=== PATIENT | female | born 1960 | race Caucasian/White ===

== ENCOUNTER 2018-08-07 05:49 | Inpatient (IN) | payer BC ==
[2018-08-07] VITALS (788 sets, daily range): BP systolic 101–143; BP diastolic 57–78; PULSE 59–73; TEMP 97.6–98.7; O2SAT 90–100
[~2018-08-07] VITALS: Ht 172.7 cm; Wt 109.8 kg
--- NOTE | 2018-08-07 10:15 | NUR ---
Patient transferred to ICU via bed by OR staff. Patient is nasally intubated and being bagged by Wang Duarte. Patient is sedated and does not follow commands. Patient is attached to bedside monitor, vital signs stable at this time. Mac catheter inserted with no complications. Family retrieved from OR waiting room at this time and present at patient's bedside. Call light placed within reach. Side rails up x3. Bed in lowest position. Patient remains in no apparent distress. Family has no concerns at this time.
[2018-08-07 10:53] LABS: COLLECTION METHOD IN
[2018-08-07 11:07] LABS: BUDDING YEAST Present /hpf; MUCOUS Present /lpf; PH 5 (5-8); SQUAMOUS EPITHELIAL None Seen /hpf; URINE APPEARANCE Turbid; URINE BACTERIA Rare /hpf; URINE BILIRUBIN Negative (NEGATIVE); URINE BLOOD Negative (NEGATIVE); URINE COLOR Yellow; URINE GLUCOSE Negative (NEGATIVE); URINE KETONE Negative (NEGATIVE); URINE LEUKOCYTE ESTERASE Negative (NEGATIVE); URINE NITRATE Negative (NEGATIVE); URINE PROTEIN(semi-quant) 2+ (NEGATIVE); URINE RBC 0-2 /hpf
[2018-08-07 11:40] LABS: HEMATOCRIT 35.2 % (37.0-47.0); HEMOGLOBIN 10.1 g/dl (12.5-16.0); MEAN CELL VOLUME 77 fl (80.0-100.0); MEAN CORPUSCULAR HEMOGLOBIN 22 pg (27.0-31.0); MEAN CORPUSCULAR HGB CONC 29 g/dl (33.0-37.0); MEAN PLATELET VOLUME 9.1 fl (7.4-10.4); PLATELET COUNT 299 K/mm3 (130-400); RED BLOOD COUNT 4.56 M/mm3 (4.10-5.30); REDCELL DISTRIBUTION WIDTH-CV 17.9 % (11.5-14.5)
[2018-08-07 11:53] LABS: ALANINE AMINOTRANSFERASE < 6 U/L (9-52); ALBUMIN 3.4 gm/dL (3.5-5.0); ALKALINE PHOSPHATASE 106 U/L (50-136); ANION GAP 7 mmol/L (7-16); AST,SGOT 12 U/L (15-37); BILIRUBIN,TOTAL 0.4 mg/dL (0.0-1.0); BLOOD UREA NITROGEN 12 mg/dL (7-17); CALCIUM 8.5 mg/dL (8.4-10.2); CARBON DIOXIDE 25 mmol/L (22-30); CHLORIDE 112 mmol/L (98-107); CREATININE, serum 0.53 (0.52-1.25); GLUCOSE 137 mg/dL (74-106); MAGNESIUM 2.1 mg/dL (1.6-2.3); PHOSPHOROUS 3.6 mg/dL (2.5-4.5); POTASSIUM 4.1 mmol/L (3.4-5.0); SODIUM 143 mmol/L (137-145); TOTAL PROTEIN 6.8 gm/dL (6.4-8.2)
[2018-08-07 12:37] LABS: ARTERIAL BLD GAS O2 SATURATION 96.8 % (92-100); ARTERIAL BLD GAS TCO2 CT 25.2; ARTERIAL BLOOD GAS BASE EXCESS -2.3 (-2-2); ARTERIAL BLOOD GAS HCO3 23.8 meq/L (22-26); ARTERIAL BLOOD GAS pH 7.33 (7.35-7.45)
[2018-08-07] MEDS ORDERED: MOTRIN 200200 MG/TAB PO (12:48)
--- NOTE | 2018-08-07 13:00 | NUR ---
Family remains at bedside with no questions or concerns. Patient remains sedated and ventilated. Refer to titration documentation for sedation medication.
[2018-08-07 13:46] LABS: ANISOCYTOSIS 2+; BAND 3 % (0-10); LYMPHOCYTE 6 % (20.0-51.0); NEUTROPHILS 89 % (42.0-75.2); OVALOCYTES 1+; PLATELET ESTIMATE NORMAL (NORMAL)
--- NOTE | 2018-08-07 16:15 | NUR ---
Patient is more alert and able to follow commands. Patient is able to write full sentences and expressed that it feels like she needs to clear her throat. Patient is told that she has a tube in her nose that extends down her throat to help her breathe and that it might make her throat feel scratchy and give her that feeling that she needs to clear her throat. Patient's tongue is visibly smaller and she is able to close her lips. Patient is not agitated and writes that she is not in any pain. Patient is repositioned at this time. Call light is placed in patient's hand and bed is lowered to the lowest position.
--- NOTE | 2018-08-07 17:00 | NUR ---
Patient is improving. Patient's tongue is less swollen and the patient is able to close her mouth completely. The patient is also able to write full sentences and communicate effectively with staff and family while on sedation. Patient is in no apparent distress at this time.
[2018-08-07] MEDS ORDERED: TEMOVATE45OI TOP (17:25)
[2018-08-07 17:33] LABS: ARTERIAL BLD GAS O2 SATURATION 85.7 % (92-100); ARTERIAL BLD GAS TCO2 CT 21.4; ARTERIAL BLOOD GAS BASE EXCESS -3.6 (-2-2); ARTERIAL BLOOD GAS HCO3 20.4 meq/L (22-26); ARTERIAL BLOOD GAS PCO2 33.2 mmHg (35-45); ARTERIAL BLOOD GAS PO2 53.1 mmHg (80-100); ARTERIAL BLOOD GAS pH 7.41 (7.35-7.45)
--- NOTE | 2018-08-07 18:38 | NUR ---
ET tube secured, but needs repositioning. RT called to assess. RT in the room at this time. Patient is stable, in no apparent distress.
--- NOTE | 2018-08-07 19:00 | NUR ---
Bedside shift report given to JONAH Woodruff. Family at bedside. Patient communicating with family with pad and pen. Patient is stable, much improved from this morning. Call light placed within reach. Bed lowered to lowest position. Patient and family have no complaints or concerns at this time.
--- NOTE | 2018-08-07 19:47 | NUR ---
Patient assessment completed and charted at this time, please see documentation for details. Patient resting in bed, tolerating ventilator well at this time, family currently at bedside, stating they are planning on leaving now so she can get some rest. Patient tongue remains swollen, reportedly improved from earlier. Patient alert and able to write on board for communication, no needs or questions at this time. Will continue to monitor.
--- NOTE | 2018-08-07 23:38 | NUR ---
Patient assessment completed, please see charting for details. Patient complains of "burping." ET tube sounds in correct place, discussed case with ISSA Knight and RT Tami and they agreed with assessment. Will continue to monitor.
[2018-08-08] VITALS (939 sets, daily range): BP systolic 111–169; BP diastolic 60–98; PULSE 66–93; TEMP 98.1–99; O2SAT 89–100
--- NOTE | 2018-08-08 05:00 | NUR ---
Sedation vacation not conducted at this time. Patient easily arousable, not considered candidate for extubation until 08/09.
[2018-08-08 05:52] LABS: MEAN CELL VOLUME 77 fl (80.0-100.0); MEAN CORPUSCULAR HGB CONC 29 g/dl (33.0-37.0); MEAN PLATELET VOLUME 9.1 fl (7.4-10.4); PLATELET COUNT 355 K/mm3 (130-400); RED BLOOD COUNT 4.31 M/mm3 (4.10-5.30); REDCELL DISTRIBUTION WIDTH-CV 17.9 % (11.5-14.5)
[2018-08-08 06:02] LABS: HEMATOCRIT 33.2 % (37.0-47.0); HEMOGLOBIN 9.6 g/dl (12.5-16.0); MEAN CORPUSCULAR HEMOGLOBIN 22 pg (27.0-31.0)
[2018-08-08 06:04] LABS: ARTERIAL BLD GAS O2 SATURATION 95.3 % (92-100); ARTERIAL BLD GAS TCO2 CT 21.2; ARTERIAL BLOOD GAS BASE EXCESS -3.9 (-2-2); ARTERIAL BLOOD GAS HCO3 20.2 meq/L (22-26); ARTERIAL BLOOD GAS PCO2 33.3 mmHg (35-45); ARTERIAL BLOOD GAS PO2 81.4 mmHg (80-100)
[2018-08-08 06:07] LABS: ALBUMIN 3.3 gm/dL (3.5-5.0); BILIRUBIN,TOTAL 0.3 mg/dL (0.0-1.0); CALCIUM 9.2 mg/dL (8.4-10.2); CREATININE, serum 0.61 (0.52-1.25); MAGNESIUM 2.1 mg/dL (1.6-2.3); PHOSPHOROUS 3.8 mg/dL (2.5-4.5); POTASSIUM 3.7 mmol/L (3.4-5.0); TOTAL PROTEIN 6.6 gm/dL (6.4-8.2)
--- NOTE | 2018-08-08 07:10 | NUR ---
Report recieved from JONAH Woodruff. Patient resting in bed with eyes closed. ETT noted to right nare with and position noted. Peripheral IV access noted x3 all without complications. IV gtt rates and concentrations verified. Mac with positive output. 2pt soft wrist restraints remain in place without complication. Care assumed.
--- NOTE | 2018-08-08 07:45 | NUR ---
Dr. Ross rounds at this time. No new orders recieved.
--- NOTE | 2018-08-08 11:30 | NUR ---
Dr. Patel rounds at this time. POC discussed. No new orders recieved.
[2018-08-08 12:13] LABS: ANISOCYTOSIS 2+; LYMPHOCYTE 12 % (20.0-51.0); NEUTROPHILS 85 % (42.0-75.2); PLATELET ESTIMATE INCREASED (NORMAL)
--- NOTE | 2018-08-08 14:41 | NUR ---
Patient sedation turned off and patient ambulates with assistance x1 to for transport to CT for ordered scans. RT is present to bag, and patient to remain on transfer monitor with this RN during duration of time off unit.
--- NOTE | 2018-08-08 14:59 | NUR ---
Patient returned to ICU room 3 and replaced to monitors. She is agreeable to sit in bedside recliner and is assisted to do so. Chair locked, call light within reach. Family at [facility]. Care ongoing.
--- NOTE | 2018-08-08 15:34 | NUR ---
Plan is unknown. Patient is unable to fully verbalize and uses paper and pen to communications. Due to early stages of condition patient and patients BF Justin Almeida are unsure what needs to happen. Patient is open to home health if needed, PCP is Kimi Mcgill and is looking to switch to Dr. Martinez. RX is obtained from [facility]. Client denies the use of any DME and has normal living independently. Denies the uses of any DME. Client indicated that she is able to drive herself. Follow-up required.
--- NOTE | 2018-08-08 16:12 | NUR ---
Patient writes that she is feeling anxious and SOB. Propofol gtt re-started, see associated documentation. RT called for any PRN tx available.
--- NOTE | 2018-08-08 16:33 | NUR ---
Dr. Herrera rounds at this time to discuss results of abdominal CT with patient and family.
--- NOTE | 2018-08-08 17:10 | NUR ---
Patient returned to bed at this time per request. Bed is placed in low and locked position, call light within reach, rails up x3, bed alarm armed. Denies further needs at this time.
--- NOTE | 2018-08-08 17:30 | NUR ---
Patient writes message to nurse stating "With this swelling going further down I don't think I'll be able to handle it. You're going to need to sedate me." Support provided and reassurance regarding advanced airway. Propofol gtt titrated as documented.
--- NOTE | 2018-08-08 18:00 | NUR ---
Patient with increased thick and copious secretions to ETT since returning to bed. RT provides in-line suction with use of saline bullet. Will continue to monitor.
--- NOTE | 2018-08-08 19:00 | NUR ---
Bedside report received from Christina Davenport RN. Pt resting with eyes closed in bed with and daughter Isabella at bedside. Questions were encouraged and answered. Policy about staying over night reviewed although daughter and reported "for our own health I think we should go home." and nurse had an agreement that if needed staff would call and spouse would return if pt is requesting family.
--- NOTE | 2018-08-08 20:30 | NUR ---
Pt assessment complete. Pt demonstrated use of the call light to make wants known to staff. Pt asked for the back of the bed to be positioned upward. Pt refused turning to a side. Asked for socks to be removed. Education provided on oral care and pt wrote "I already have pneumonia." Pt also wrote when discussed the purpose for Pepcid prior to administration "I like the burbs". Facial flushing noted although the rest of pts body/ skin is pink in coloration. Pt is not currently under restraints and tolerating the ventilator well. Vent is in the pts right nare with NG in the left.
[2018-08-09] VITALS (777 sets, daily range): BP systolic 124–167; BP diastolic 76–97; PULSE 74–102; TEMP 97.9–98.7; O2SAT 86–100
--- NOTE | 2018-08-09 | NUR ---
Pt attempted to use the bed duque. Refused to get off of it multiple times when staff assessed pt completion of use when pt was on it for over 30 minutes time. Pt wrote "Its not uncomfortable." Education to pt that it is not good for the skin to sit on the bedpan for extended periods of time so pt agreed to have a bed bath and get off of the bed duque at this time and try later since there was no BM results.
--- NOTE | 2018-08-09 03:15 | NUR ---
Discussed with RT and decided not to wake pt up to complete oral care. Pt resting well at this time.
[2018-08-09 05:44] LABS: ARTERIAL BLD GAS O2 SATURATION 97.4 % (92-100); ARTERIAL BLOOD GAS BASE EXCESS -1.9 (-2-2); ARTERIAL BLOOD GAS HCO3 21.1 meq/L (22-26); ARTERIAL BLOOD GAS PCO2 30.3 mmHg (35-45); ARTERIAL BLOOD GAS PO2 102.6 mmHg (80-100); ARTERIAL BLOOD GAS pH 7.46 (7.35-7.45)
[2018-08-09 06:08] LABS: MEAN CELL VOLUME 78 fl (80.0-100.0); MEAN CORPUSCULAR HGB CONC 29 g/dl (33.0-37.0); MEAN PLATELET VOLUME 9.2 fl (7.4-10.4); PLATELET COUNT 366 K/mm3 (130-400); RED BLOOD COUNT 4.24 M/mm3 (4.10-5.30); REDCELL DISTRIBUTION WIDTH-CV 18.6 % (11.5-14.5)
[2018-08-09 06:09] LABS: HEMATOCRIT 32.9 % (37.0-47.0); HEMOGLOBIN 9.5 g/dl (12.5-16.0); MEAN CORPUSCULAR HEMOGLOBIN 22 pg (27.0-31.0)
[2018-08-09 06:26] LABS: ALBUMIN 3.2 gm/dL (3.5-5.0); BILIRUBIN,TOTAL 0.3 mg/dL (0.0-1.0); CALCIUM 8.9 mg/dL (8.4-10.2); CREATININE, serum 0.63 (0.52-1.25); POTASSIUM 3.6 mmol/L (3.4-5.0); TOTAL PROTEIN 6.4 gm/dL (6.4-8.2)
[2018-08-09 06:45] LABS: IRON,SERUM 25 ug/dL (35-150)
[2018-08-09 06:55] LABS: TOTAL IRON BINDING CAPACITY 288 ug/dL (265-497)
[2018-08-09 07:03] LABS: ANISOCYTOSIS 1+; LYMPHOCYTE 3 % (20.0-51.0); NEUTROPHILS 95 % (42.0-75.2); PLATELET ESTIMATE NORMAL (NORMAL)
--- NOTE | 2018-08-09 07:10 | NUR ---
Bedside report provided to Christina Beckham RN. Pt resting in bed exercising arms and doing ankle pumps. Active in report with writing to staff members.
--- NOTE | 2018-08-09 07:10 | NUR ---
Bedside report received from JONAH Rice.
[2018-08-09 07:22] LABS: FERRITIN 117 ng/mL (11-264)
--- NOTE | 2018-08-09 08:00 | NUR ---
Assessment completed. Pt awake with ventilator on CPAP setting. Pt able to write any questions she has at the time. Pt denies any pain. Pt's tongue not as swollen on left than right. Pt nods yes when asked if swelling in tongue improved. Remains on propofol gtt on low dose. Pt writes it helps with anxiety. at bedside. All questions answered to pt and pt's satisfaction. VSS. Call light in reach.
--- NOTE | 2018-08-09 08:45 | NUR ---
Pt extubated by RT. NGT dc'd. Pt has strong cough. Small amt, thin blood tinged sputum. Pt placed on 5L/oxymask. SPO2 96%. Pt lungs remain course, dim in bases. Dr chambers at bedside. No new orders.
--- NOTE | 2018-08-09 11:15 | NUR ---
Pt up to bedside commode with stand by assist. Pt has steady gait. Pt tolerated activity well. Recliner offered to pt but pt would like to go back to bed. Call light in reach.
--- NOTE | 2018-08-09 12:01 | NUR ---
First visit from the traffic signal repairer. No needs right now.
--- NOTE | 2018-08-09 19:20 | NUR ---
Bedside report received from Christina Beckham RN. Pt resting in bed with spouse present. Active participation in report. Reports mild discomfort to right side jaw, mild back discomfort, and swelling to bilateral feet. Pt denies any treatments including medication, heat pack or cool pack. Pt reports preference to the bed over the chair due to a cyst near the lower spine that causes the pt to have to shift weight frequently.
--- NOTE | 2018-08-09 19:31 | NUR ---
Report given to JONAH Rice.
[2018-08-10] VITALS (259 sets, daily range): BP systolic 123–154; BP diastolic 64–81; PULSE 62–75; TEMP 97.8–98.8; O2SAT 88–100
--- NOTE | 2018-08-10 02:25 | NUR ---
Pt called out for nurse assistance to the restroom. Pt also requested to walk around room due to "my feet are so swollen". Pt ambulated to the toilet with standby assist and marched in place for a few moments with nurse at bedside. Pt denies any lightheadedness or feeling unsteady. Pt continued to march/ walk in room for atleast 10 minutes until RT entered room to complete a breathing treatment.
[2018-08-10 05:33] LABS: MEAN CELL VOLUME 78 fl (80.0-100.0); MEAN CORPUSCULAR HGB CONC 29 g/dl (33.0-37.0); MEAN PLATELET VOLUME 8.8 fl (7.4-10.4); PLATELET COUNT 311 K/mm3 (130-400); RED BLOOD COUNT 3.97 M/mm3 (4.10-5.30); REDCELL DISTRIBUTION WIDTH-CV 18.6 % (11.5-14.5)
[2018-08-10 05:37] LABS: INR 1.3 (0.8-3.0); PROTHROMBIN TIME 15.1 SECONDS (9.7-12.8)
[2018-08-10 05:43] LABS: ALBUMIN 3.3 gm/dL (3.5-5.0); BILIRUBIN,TOTAL 0.4 mg/dL (0.0-1.0); CALCIUM 8.7 mg/dL (8.4-10.2); CREATININE, serum 0.72 (0.52-1.25); HEMATOCRIT 30.9 % (37.0-47.0); HEMOGLOBIN 8.9 g/dl (12.5-16.0); MAGNESIUM 2.2 mg/dL (1.6-2.3); MEAN CORPUSCULAR HEMOGLOBIN 22 pg (27.0-31.0); POTASSIUM 3.5 mmol/L (3.4-5.0); TOTAL PROTEIN 6.3 gm/dL (6.4-8.2)
[2018-08-10 07:08] LABS: BASOPHIL 1 % (0-2); LYMPHOCYTE 8 % (20.0-51.0); MYELOCYTE 1 % (0-0); NEUTROPHILS 90 % (42.0-75.2); PLATELET ESTIMATE NORMAL (NORMAL)
[2018-08-10 07:09] LABS: ANISOCYTOSIS 1+; TOXIC GRANULATION PRESENT
--- NOTE | 2018-08-10 07:10 | NUR ---
Bedside report provided to Maykel MCKENZIE. Pt resting in bed at this time. When asked if there was any questions or anything to add pt responded "I wasnt really paying attention."
--- NOTE | 2018-08-10 08:00 | NUR ---
Shift assessment complete at this time. Plan of care reviewed at bedside with patient. Additional time taken to address any other needs or concerns. Vitals stable at this time. Denies pain or any other discomfort. Will continue to monitor.
--- NOTE | 2018-08-10 10:20 | NUR ---
PATIENT AMITED INTO ROOM 358 FROM ICU WITH ADMISSION DX OF ANGIOEDEMA. A&P LUNG CORBETT NOTED FC IN BASES. SATS AT 96% ON RA. NO C/O SOB OR CHEST PAIN. PATIENT WAS INTUBATED IN ICU DURING HOSPITILIZATION AND EXTUBATED 5. PULMONOLOGY SAW PATIENT TODAY IN ICU AND HAS SIGNED OFF. HEAD TO TOE ASSESSMENT COMPLETE. SR IN 60'S ON TELE. INDEPENDENT IN ROOM. GENERAL DIET. AT BEDSIDE. ORIENTED TO ROOM. CALL LIGHT IN REACH.
--- NOTE | 2018-08-10 11:31 | NUR ---
First visit from the wood cutter. No needs right now.
--- NOTE | 2018-08-10 14:18 | NUR ---
BACK AT BEDSIDE TO EVAL PATIENT C/O FOR MILD COMPLAINTS OF SPOT ON RIGHT SIDE OF TONGUE THAT COULD BE SWELLING. NURSING ASSESSMENT NOTED NO TONGUE OF FACIAL SWELLING. PATIENT'S FACE FLUSHED, WITH IS NORMAL FOR HER. SHE FEELS LIKE HER FACE IS HOT. ICE APPLIED TO FACE PRN. FAMILY AT BEDSIDE TALKING WITH .
--- NOTE | 2018-08-10 14:50 | NUR ---
PATIENT AMBULATING IN HALLWAY WITH PHYSICAL THERAPY. PATIENT APPEARS TO BE TOLERATING ACTIVITY WELL. NO SOB. SEE PT NOTES.
--- NOTE | 2018-08-10 15:50 | NUR ---
PATIENT REPORTS SHE'S FEELING MUCH BETTER REPORTING SHE FEELS EMBARRASSED FOR HER OVER REACTION EARLIER. PATIENT WAS VERY ANXIOUS. IV ATIVAN SEEMS TO HAVE HELPED A LOT. PATIENT SMILING AND VISITING WITH FAMILY. NO NEEDS AT THIS TIME. PATIENT REPORTS SHE MAY WANT TO TAKE A SHOWER LATER TONIGHT.
--- NOTE | 2018-08-10 23:00 | NUR ---
Patient assessed around 2124. Denies having pain and discomfort. Voices no needs or concerns. Took shower as requested. Telemetry box and wires changed out and now working. LS CTA in upper lobes, diminished in lower lobes. Denies having SOB and dyspnea. Continues on antibiotics for pneumonia per orders. On room air at this time. Peripheral IV sites to right hand, left wrist, and left AC are patent, and sites are without redness, warmth, swelling, and pain. Voices no needs or concerns at this time. at bedside. Call light within reach.
[2018-08-11 03:21] VITALS: BP 117/65; PULSE 55; TEMP 97.6
--- NOTE | 2018-08-11 04:04 | NUR ---
Patient resting in bed with eyes closed at this time. Has denied having pain and discomfort throughout the night. Voices no needs or concerns at this time. Call light is within reach.
[2018-08-11 06:26] LABS: BASO % 0.1 % (0.0-2.0); GRAN # 7.7 (1.4-6.5); GRAN % 89.1 % (42.2-75.2); LYMPH # 0.7 (1.2-3.4); LYMPH % 7.9 % (20.0-51.0); MEAN CELL VOLUME 78 fl (80.0-100.0); MEAN CORPUSCULAR HGB CONC 29 g/dl (33.0-37.0); MEAN PLATELET VOLUME 9.2 fl (7.4-10.4); MONO # 0.2 (0.1-0.6); MONO % 2.1 % (1.7-9.3); PLATELET COUNT 329 K/mm3 (130-400); RED BLOOD COUNT 4.16 M/mm3 (4.10-5.30); REDCELL DISTRIBUTION WIDTH-CV 18.6 % (11.5-14.5)
[2018-08-11 06:28] LABS: HEMATOCRIT 32.3 % (37.0-47.0); HEMOGLOBIN 9.3 g/dl (12.5-16.0); MEAN CORPUSCULAR HEMOGLOBIN 22 pg (27.0-31.0)
[2018-08-11 06:35] LABS: CALCIUM 8.7 mg/dL (8.4-10.2); CREATININE, serum 0.71 (0.52-1.25); POTASSIUM 4.1 mmol/L (3.4-5.0)
[2018-08-11 08:07] VITALS: BP 154/78; PULSE 66; TEMP 97.5
--- NOTE | 2018-08-11 08:45 | NUR ---
Pt sitting in bed, breathing even and unlabored. Denies shortness of breath or throat tightness. Breath sounds clear to auscultation. Denies any pain. Completed morning assessment. Removed INT to LAC, catheter tip intact, no redness or swelling noted. Catheter was detention out, two other INT sites available. Denies any needs at this time. Call light in reach.
--- NOTE | 2018-08-11 11:38 | NUR ---
Pt sitting in chair, breathing even and unlabored. Pt informed nurse she has a primary care doctor now, Dr. Mcgill from [facility]. Denies any needs at this time. Call light in reach.
[2018-08-11 12:49] VITALS: BP 150/70; PULSE 65; TEMP 98.5
--- NOTE | 2018-08-11 13:11 | NUR ---
LEVI met with the patient and patient's , Justin, to review discharge plan. The patient reports that she plans to return home with her upon discharge. No additional needs at this time.
[2018-08-11] MEDS ORDERED: BENADRYL50 MG PO (13:51)
[2018-08-11] MEDS ORDERED: PREDNISONE20 MG PO (13:52)
[2018-08-11] MEDS ORDERED: KLONOPIN 1MG1 MG PO (13:54)
[2018-08-11] MEDS ORDERED: CLEOCIN HCL300 MG PO (13:55)
[2018-08-11] MEDS ORDERED: CLEOCIN HC150 MG/CAP PO (13:56)
[2018-08-11] MEDS ORDERED: TYLENOL 500MG500 MG PO (13:58)
--- NOTE | 2018-08-11 15:30 | NUR ---
Discharge paperwork given, all questions asked and answered. INT to RW and LH removed. Catheter tips intact, no redness or swelling noted. Pt has all belongings with her. Pt walked out with [facility] staff.
== END 2018-08-11 15:30 | disposition home or self-care (01) | DRG 915 ==
LOC: COL.ER 05:49 → SDCO 06:41 → ICU 10:39 → IMCU 08-09 05:37 → ICU 08-09 05:37 → MEDICAL 08-10 10:22
PROVIDERS: Hospitalist; Internal Medicine Pulmonary Disease; Nurse Practitioner Family; Student in an Organized Health Care Education/Training Program; ADMIT Family Medicine
PROC: 5A1945Z Respiratory Ventilation, 24-96 Consecutive Hours (ICD-10-PCS; 2018-08-07)
PROC: 0BH18EZ Insertion of Endotracheal Airway into Trachea, Via Natural or Artificial Opening Endoscopic (ICD-10-PCS; principal; 2018-08-07 07:00)
DX: T78.3XXA Angioneurotic edema, initial encounter (principal); J96.90 Respiratory failure, unspecified, unspecified whether with hypoxia or hypercapnia; J69.0 Pneumonitis due to inhalation of food and vomit; C64.1 Malignant neoplasm of right kidney, except renal pelvis; C77.9 Secondary and unspecified malignant neoplasm of lymph node, unspecified; E66.9 Obesity, unspecified; M19.90 Unspecified osteoarthritis, unspecified site; R51 Headache; L40.9 Psoriasis, unspecified; D72.829 Elevated white blood cell count, unspecified; Z68.33 Body mass index [BMI] 33.0-33.9, adult; D50.9 Iron deficiency anemia, unspecified; Z88.5 Allergy status to narcotic agent; F41.9 Anxiety disorder, unspecified
CPT/HCPCS: 99222-AI; 99232-AI; 99239; J0171; J0456; J1100; J1200; J1650; J2060; J2250; J2405; J2543; J2704; J2920; J2930; J3010; J7030; J7050; J7120; Q9967

== ENCOUNTER 2018-08-12 09:00 | Inpatient (IN) | payer BC ==
[~2018-08-12] VITALS: Ht 167.6 cm; Wt 102.1 kg
[~2018-08-12 09:00] MED LIST: BENADRYL50 MG PO; CLEOCIN HC150 MG/CAP PO; CLEOCIN HCL300 MG PO; KLONOPIN 1MG1 MG PO; MOTRIN 200200 MG/TAB PO; PREDNISONE20 MG PO; TEMOVATE45OI TOP; TYLENOL 500MG500 MG PO
[2018-08-20] VITALS (9 sets, daily range): BP systolic 131–160; BP diastolic 64–74; PULSE 63–86; TEMP 97.3–98.3
[2018-08-20 09:50] LABS: BASO % 0.1 % (0.0-2.0); EOS # 0.1 (0.0-0.7); EOS % 0.8 % (0-4.0); GRAN # 6.8 (1.4-6.5); GRAN % 70.8 % (42.2-75.2); HEMATOCRIT 36.3 % (37.0-47.0); HEMOGLOBIN 10.8 g/dl (12.5-16.0); LYMPH # 1.7 (1.2-3.4); LYMPH % 17.5 % (20.0-51.0); MEAN CELL VOLUME 76 fl (80.0-100.0); MEAN CORPUSCULAR HEMOGLOBIN 23 pg (27.0-31.0); MEAN CORPUSCULAR HGB CONC 30 g/dl (33.0-37.0); MEAN PLATELET VOLUME 8.7 fl (7.4-10.4); MONO % 10.3 % (1.7-9.3); PLATELET COUNT 274 K/mm3 (130-400); REDCELL DISTRIBUTION WIDTH-CV 19.2 % (11.5-14.5)
[2018-08-20 09:54] LABS: INR 1.3 (0.8-3.0); PROTHROMBIN TIME 14.9 SECONDS (9.7-12.8)
[2018-08-20 09:56] LABS: PARTIAL THROMBOPLASTIN TIME 32.9 SECONDS (26.0-37.0)
[2018-08-20 10:00] LABS: ALANINE AMINOTRANSFERASE < 6 U/L (9-52); ALBUMIN 3.6 gm/dL (3.5-5.0); ALKALINE PHOSPHATASE 87 U/L (50-136); ANION GAP 10 mmol/L (7-16); AST,SGOT 11 U/L (15-37); BILIRUBIN,TOTAL 0.6 mg/dL (0.0-1.0); BLOOD UREA NITROGEN 8 mg/dL (7-17); CARBON DIOXIDE 24 mmol/L (22-30); CHLORIDE 104 mmol/L (98-107); CREATININE, serum 0.58 (0.52-1.25); GLUCOSE 150 mg/dL (74-106); POTASSIUM 3.4 mmol/L (3.4-5.0); SODIUM 139 mmol/L (137-145); TOTAL PROTEIN 6.8 gm/dL (6.4-8.2)
[2018-08-20 14:10] LABS: BASO % 0.2 % (0.0-2.0); EOS # 0.1 (0.0-0.7); EOS % 0.3 % (0-4.0); GRAN # 15.8 (1.4-6.5); GRAN % 85.6 % (42.2-75.2); HEMATOCRIT 36.4 % (37.0-47.0); HEMOGLOBIN 10.6 g/dl (12.5-16.0); LYMPH # 1.2 (1.2-3.4); LYMPH % 6.2 % (20.0-51.0); MEAN CELL VOLUME 77 fl (80.0-100.0); MEAN CORPUSCULAR HEMOGLOBIN 23 pg (27.0-31.0); MEAN CORPUSCULAR HGB CONC 29 g/dl (33.0-37.0); MONO # 1.3 (0.1-0.6); MONO % 6.9 % (1.7-9.3); PLATELET COUNT 280 K/mm3 (130-400); RED BLOOD COUNT 4.71 M/mm3 (4.10-5.30); REDCELL DISTRIBUTION WIDTH-CV 19.2 % (11.5-14.5)
[2018-08-20 14:22] LABS: CALCIUM 8.7 mg/dL (8.4-10.2); CREATININE, serum 0.7 (0.52-1.25); POTASSIUM 3.5 mmol/L (3.4-5.0)
--- NOTE | 2018-08-20 14:30 | NUR ---
Pt arrived to floor at this time via bed with OR staff. Sleepy but arousable, abd has 3 small incision sites and one larger site that is CDI covered with gauze and tegaderm. VSS. Family at bedside. Lungs are CTA, bases diminished, HR NSR, pedal pulses +2, radial pulses +2. Ice chips only ordered, clarified with Trisha and he wants ice chips only until am. Pt agreeable. Will continue to monitor.
--- NOTE | 2018-08-20 16:20 | NUR ---
ARRIVED AT ROOM PATIENT AND FAMILY IN ROOM SLEEPING DID NOT WAKE PATIENT FOR IS AT THIS TIME.
--- NOTE | 2018-08-20 18:09 | NUR ---
Pt doing well. Resting in bed, more awake intermittently but not "ready to get up" pain is 6 to 8 out of 10 in abdomen. Agreeable to tylenol and discussed other pain options if not improved. VSS. Some shadowing on large incision site. Titrated off 02. Taking some ice chips. Family remains at bedside, will give bedside shifft report to nightshift nurse who will resume care.
--- NOTE | 2018-08-20 18:56 | NUR ---
Pt able to get up and stand at bedside with assistance. Pain was elevated from standing but tolerated well. Rosita to resume care.
--- NOTE | 2018-08-20 19:40 | NUR ---
Report received from JONAH Caballero. Patient states she does not tolerate oral pain medication well on an empty stomach. Diet ordered is ice chips only. PRN Morphine administered to reduce the risk of vomiting with orarl pain medication.
[2018-08-21] VITALS: BP 129/62; PULSE 67; TEMP 98.6
--- NOTE | 2018-08-21 00:32 | NUR ---
Patient administered scheduled Tylenol. States pain level is manageable at this time and she has been able to rest well. Will continue to monitor patient.
[2018-08-21 03:29] VITALS: BP 118/60; PULSE 67; TEMP 98.3
--- NOTE | 2018-08-21 04:06 | NUR ---
Patient complaining of pain to lower right abdomen 10/13. States its like having labor pains, that its sharp. PRN Morphine given d/t reasons stated before.
--- NOTE | 2018-08-21 06:39 | NUR ---
Report given to JONAH Arechiga.
[2018-08-21 08:11] LABS: BASO % 0.1 % (0.0-2.0); EOS % 0.1 % (0-4.0); GRAN # 12.4 (1.4-6.5); GRAN % 83.1 % (42.2-75.2); LYMPH # 1.1 (1.2-3.4); LYMPH % 7.3 % (20.0-51.0); MEAN CELL VOLUME 77 fl (80.0-100.0); MEAN CORPUSCULAR HGB CONC 29 g/dl (33.0-37.0); MEAN PLATELET VOLUME 9.2 fl (7.4-10.4); MONO # 1.3 (0.1-0.6); MONO % 8.8 % (1.7-9.3); PLATELET COUNT 255 K/mm3 (130-400); REDCELL DISTRIBUTION WIDTH-CV 19.2 % (11.5-14.5)
[2018-08-21 08:13] LABS: HEMOGLOBIN 9.6 g/dl (12.5-16.0); MEAN CORPUSCULAR HEMOGLOBIN 22 pg (27.0-31.0)
[2018-08-21 08:23] LABS: CALCIUM 8.6 mg/dL (8.4-10.2); CREATININE, serum 0.93 (0.52-1.25); POTASSIUM 3.7 mmol/L (3.4-5.0)
--- NOTE | 2018-08-21 08:54 | NUR ---
LEVI met with the patient to discuss a discharge plan. The patient lives in [place] with her Justin. The patient does not use any DME and reports independence with ADLs. The patient's PCP is Dr. Mcgill and the patient receives her medications from [facility]. The patient reports no difficulties obtaining her medications. The patient does have advanced directives in the EMR. The patient plans to return home upon discharge. There are no additional needs at this time.
[2018-08-21 09:23] VITALS: BP 119/59; PULSE 72; TEMP 98.2
[2018-08-21 12:26] VITALS: BP 125/48; PULSE 76; TEMP 98.6
[2018-08-21 17:01] VITALS: BP 125/56; PULSE 72; TEMP 98.8
--- NOTE | 2018-08-21 18:00 | NUR ---
Dr. Edwards saw patient. Questions answered. Ambulated slowly x 2 this shift with staff. Sat up in chair much of day. Tolerating clear liquids well. Complaining of gas pains. Good urine output per ma catheter. Family in room.
[2018-08-21 20:18] VITALS: BP 106/44; PULSE 79; TEMP 98.5
[2018-08-22 00:22] VITALS: BP 116/47; PULSE 82; TEMP 98.5
[2018-08-22 03:26] VITALS: BP 107/55; PULSE 78; TEMP 98.5
--- NOTE | 2018-08-22 04:10 | NUR ---
RESTING QUIETLY. PT AMBULATED IN BLUE EARLY IN SHIFT. NO N/V. MARES OUTPUT CLEAR, YELLOW. TRAMADOL FOR PAIN.
[2018-08-22 07:35] LABS: MEAN CELL VOLUME 78 fl (80.0-100.0); MEAN CORPUSCULAR HGB CONC 29 g/dl (33.0-37.0); MEAN PLATELET VOLUME 9.3 fl (7.4-10.4); PLATELET COUNT 232 K/mm3 (130-400); RED BLOOD COUNT 3.94 M/mm3 (4.10-5.30); REDCELL DISTRIBUTION WIDTH-CV 19.2 % (11.5-14.5)
[2018-08-22 07:47] LABS: CALCIUM 8.4 mg/dL (8.4-10.2); CREATININE, serum 0.98 (0.52-1.25); POTASSIUM 3.8 mmol/L (3.4-5.0)
[2018-08-22 07:50] LABS: HEMATOCRIT 30.6 % (37.0-47.0); MEAN CORPUSCULAR HEMOGLOBIN 23 pg (27.0-31.0)
[2018-08-22 08:14] VITALS: BP 117/55; PULSE 81; TEMP 98.4
[2018-08-22 12:00] VITALS: BP 131/68; PULSE 78; TEMP 98.2
[2018-08-22 16:15] VITALS: BP 117/52; PULSE 75; TEMP 98.3
--- NOTE | 2018-08-22 18:00 | NUR ---
Has not required any additional pain medication. Using heating pad to right abdomen for c/o muscle soreness. Zofran given for c/o nausea x 1. Voiding well after catheter dc'd. Ambulatory in room and halls without difficulty. Family at bedside.
[2018-08-22 20:00] VITALS: BP 136/65; PULSE 79; TEMP 98.7
--- NOTE | 2018-08-22 21:20 | NUR ---
Patient report received from JONAH Arevalo. Upon assessment patient is resting comfortably in bed. Denies pain when laying down, but reports increased pain with activity. Denies n/v, tolerating full liquid diet this evening. Incision to right lower abd is BLACK AND WHITE PRINTER OPERATOR with edges well approximated. Nick all intact. No drainage noted. Lap sites x 3 CDI. Patient had ma taken out today, voiding adequately. IV fluids infusing at 75 ml/hr through right wrist IV. No other needs reported/observed.
--- NOTE | 2018-08-23 01:00 | NUR ---
Patient called out reporting pain to abd and right lower back/flank area. PRN Roxicodone given with scheduled tylenol. Patient also reports that she feels like the left side of her neck is swollen, states that her ripshear operator instructed her to take 50 mg benadryl and prednisone right away if she starts having swelling or signs of a reaction. Patient does state that she doesn't feel like it has progressed at all since first noticing it. Dr. Grace elizondo MD ordered 50 mg IV Benadryl once and 10 mg PO prednisone once. Patient decided to hold off on taking these medications, but states that she will notify nurse right away if she feels the swelling is progressing.
[2018-08-23 04:36] VITALS: BP 115/48; PULSE 71; TEMP 98
--- NOTE | 2018-08-23 04:37 | NUR ---
Vitals stable. Patient reports that the swelling feeling to her neck is completely resolved at this time. Denies any needs at this time.
--- NOTE | 2018-08-23 07:04 | NUR ---
Patient report given to JONAH Bell. Patient resting comfortably in bed. No needs observed.
[2018-08-23 08:22] VITALS: BP 123/59; PULSE 71; TEMP 98.2
[2018-08-23 12:22] VITALS: BP 123/53; PULSE 70; TEMP 97.9
[2018-08-23 15:35] VITALS: BP 139/60; PULSE 79; TEMP 97.4
--- NOTE | 2018-08-23 18:50 | NUR ---
Discharge instructions reviewed with patient and spouse, verbalized understanding. Discharged via wheelchair to auto/home with family at 1850.
== END 2018-08-23 18:50 | disposition home or self-care (01) | DRG 658 ==
LOC: INPTSU 08-20 09:03 → SURG 08-20 09:03
PROVIDERS: Urology; ADMIT Urology
PROC: 0TT00ZZ Resection of Right Kidney, Open Approach (ICD-10-PCS; principal; 2018-08-20 11:00)
DX: C64.1 Malignant neoplasm of right kidney, except renal pelvis (principal); E66.9 Obesity, unspecified; Z68.36 Body mass index [BMI] 36.0-36.9, adult; Z88.5 Allergy status to narcotic agent; Z88.6 Allergy status to analgesic agent
CPT/HCPCS: A4314; A9284; J1170; J1650; J2250; J2270; J2370; J2405; J2704; J2795; J3010; J7050; J7120

== ENCOUNTER → 2018-08-31 | Outpatient (CLI) | payer BC ==
[2018-08-31] VITALS (7 sets, daily range): BP systolic 120–137; BP diastolic 74–83; PULSE 73–84
[~2018-08-31] VITALS: Ht 167.6 cm; Wt 96.8 kg
--- NOTE | 2018-08-31 14:10 | NUR ---
Pt to ct per ambulation. Monitors applied. Pt positioned in prone tilted with left side down.
--- NOTE | 2018-08-31 14:28 | NUR ---
Specimens obtained by Dr Grant and placed in formalin. Specimen labeled.
== END ==
LOC: COL.RAD 13:00
DX: N28.89 Other specified disorders of kidney and ureter (principal); M25.851 Other specified joint disorders, right hip

== ENCOUNTER → 2018-09-14 | Outpatient (CLI) | payer BC | LOC: COL.RAD 11:18 | DX: C64.1 Malignant neoplasm of right kidney, except renal pelvis (principal) | CPT/HCPCS: Q9967 ==

== ENCOUNTER → 2018-11-24 | Outpatient (CLI) | payer BC | LOC: COL.RAD 09:32 | DX: C64.1 Malignant neoplasm of right kidney, except renal pelvis (principal); E27.8 Other specified disorders of adrenal gland; R22.2 Localized swelling, mass and lump, trunk; Z98.890 Other specified postprocedural states; Z90.5 Acquired absence of kidney | CPT/HCPCS: Q9967 ==

== ENCOUNTER → 2019-02-01 | Outpatient (CLI) | payer BC | LOC: MC.RAD 16:11 | DX: Z12.31 Encounter for screening mammogram for malignant neoplasm of breast (principal) ==

== ENCOUNTER → 2019-06-08 | Outpatient (CLI) | payer BC | LOC: COL.RAD 09:22 | DX: C64.1 Malignant neoplasm of right kidney, except renal pelvis (principal); K44.9 Diaphragmatic hernia without obstruction or gangrene; E04.1 Nontoxic single thyroid nodule; R16.1 Splenomegaly, not elsewhere classified; R91.1 Solitary pulmonary nodule; Z90.5 Acquired absence of kidney | CPT/HCPCS: Q9967 ==

== ENCOUNTER → 2019-06-20 | Outpatient (CLI) | payer BC | LOC: COL.RAD 13:06 | DX: C64.1 Malignant neoplasm of right kidney, except renal pelvis (principal); E04.1 Nontoxic single thyroid nodule ==

== ENCOUNTER 2019-08-23 08:00 | Outpatient (RCR) | payer BC ==
[2019-08-22 08:45] VITALS: BP 131/59; PULSE 67; TEMP 98
[~2019-08-23] VITALS: Ht 167.6 cm; Wt 122.7 kg
[2019-08-23 08:21] VITALS: BP 114/67; PULSE 73; TEMP 98.2
[2019-08-23] MEDS ORDERED: LEVOXYL0.125 MG PO (08:21)
== END 2019-08-24 17:48 | disposition home or self-care (01) ==
LOC: EUO 08:00
DX: C73 Malignant neoplasm of thyroid gland (principal)
CPT/HCPCS: J3240

== ENCOUNTER → 2019-08-24 | Outpatient (CLI) | payer BC ==
[~2019-08-24] MED LIST changes: +LEVOXYL0.125 MG PO
== END ==
LOC: COL.RAD 08:14
DX: C73 Malignant neoplasm of thyroid gland (principal)
CPT/HCPCS: A9517

== ENCOUNTER → 2019-08-31 | Outpatient (CLI) | payer BC ==
[2019-09-01 17:31] LABS: THYROGLOBULIN AB SCREEN <1.8 IU/mL (<1.8); THYROGLOBULIN TUMOR MARKER 15 ng/mL (())
== END ==
LOC: COL.LAB 07:36
PROVIDERS: Student in an Organized Health Care Education/Training Program
DX: C73 Malignant neoplasm of thyroid gland (principal)

== ENCOUNTER → 2019-11-01 | Outpatient (CLI) | payer BC | LOC: COL.RAD 09:39 | DX: C64.1 Malignant neoplasm of right kidney, except renal pelvis (principal); C73 Malignant neoplasm of thyroid gland; E27.8 Other specified disorders of adrenal gland; R91.1 Solitary pulmonary nodule; I28.8 Other diseases of pulmonary vessels; Z90.5 Acquired absence of kidney | CPT/HCPCS: Q9967 ==

== ENCOUNTER → 2020-01-31 | Outpatient (CLI) | payer BC | LOC: COL.RAD 08:15 | DX: C64.9 Malignant neoplasm of unspecified kidney, except renal pelvis (principal); R91.1 Solitary pulmonary nodule; E27.9 Disorder of adrenal gland, unspecified; Z90.5 Acquired absence of kidney | CPT/HCPCS: Q9967 ==

== ENCOUNTER → 2020-05-02 | Outpatient (CLI) | payer BC | LOC: COL.RAD 07:48 | DX: C64.9 Malignant neoplasm of unspecified kidney, except renal pelvis (principal); Z90.89 Acquired absence of other organs | CPT/HCPCS: Q9967 ==

== ENCOUNTER → 2020-07-12 | Outpatient (CLI) | payer BC | LOC: MC.RAD 14:45 | DX: Z12.31 Encounter for screening mammogram for malignant neoplasm of breast (principal) ==

== ENCOUNTER → 2020-08-06 | Outpatient (CLI) | payer BC | LOC: COL.RAD 07:45 | DX: Z90.5 Acquired absence of kidney (principal); C64.1 Malignant neoplasm of right kidney, except renal pelvis; C73 Malignant neoplasm of thyroid gland; Z90.89 Acquired absence of other organs | CPT/HCPCS: Q9967 ==

== ENCOUNTER → 2020-12-05 | Outpatient (CLI) | payer BC | LOC: COL.RAD 08:09 | DX: C64.1 Malignant neoplasm of right kidney, except renal pelvis (principal); C79.89 Secondary malignant neoplasm of other specified sites; Z90.5 Acquired absence of kidney; Z90.89 Acquired absence of other organs | CPT/HCPCS: Q9967 ==

== ENCOUNTER → 2021-04-11 | Outpatient (CLI) | payer BC | LOC: COL.RAD 11:23 | DX: C64.1 Malignant neoplasm of right kidney, except renal pelvis (principal); E27.8 Other specified disorders of adrenal gland; Z90.5 Acquired absence of kidney | CPT/HCPCS: Q9967 ==

== ENCOUNTER → 2021-08-07 | Outpatient (CLI) | payer BC | LOC: COL.RAD 09:49 | DX: C64.1 Malignant neoplasm of right kidney, except renal pelvis (principal); C73 Malignant neoplasm of thyroid gland; E27.9 Disorder of adrenal gland, unspecified; Z90.5 Acquired absence of kidney | CPT/HCPCS: Q9967 ==

== ENCOUNTER → 2022-07-09 | Outpatient (CLI) | payer BC | LOC: MC.RAD 13:36 | DX: Z12.31 Encounter for screening mammogram for malignant neoplasm of breast (principal) ==